=== PATIENT | male | born 1955 | race Caucasian/White ===

== ENCOUNTER 2019-10-20 18:53 | Emergency (ER) | payer MEDICAID, OTHER, SELFPAY ==
[~2019-10-20] VITALS: Ht 157.5 cm; Wt 54.5 kg
[2019-10-20] MEDS ORDERED: PLEASE ENTER ALLERGIES MC SCH (19:30)
[2019-10-20] MEDS ORDERED: DIPH,PERTUSS(ACELL),TET VAC/PF 0.5 ML IM-VACC ONE ×2 (19:30→20:05)
[2019-10-20] MEDS ORDERED: BACITRACIN OINT 500U/GM, 15 GM TP STA (19:45)
[2019-10-20] MEDS ORDERED: NEOSPORIN OINT. PKT 1 PACKET ONE ×2 (19:47→19:51)
[2019-10-20 20:53] VITALS: BP 104/60
== END 2019-10-20 21:01 | disposition home or self-care (01) ==
LOC: ED 21:00
DX: S00.83XA Contusion of other part of head, initial encounter (principal); S00.33XA Contusion of nose, initial encounter; F10.120 Alcohol abuse with intoxication, uncomplicated; F17.210 Nicotine dependence, cigarettes, uncomplicated; W01.0XXA Fall on same level from slipping, tripping and stumbling without subsequent striking against object, initial encounter; Y93.89 Activity, other specified; Y92.488 Other paved roadways as the place of occurrence of the external cause; Y99.8 Other external cause status; Y90.9 Presence of alcohol in blood, level not specified
CPT/HCPCS: 70450; 70486; 72125; 90471; 90715; 99284

== ENCOUNTER 2019-11-14 05:21 | Emergency (ER) | payer SELFPAY ==
[~2019-11-14] VITALS: Ht 160 cm; Wt 50.9 kg
[2019-11-14 05:29] VITALS: BP 119/93
== END 2019-11-14 06:07 | disposition home or self-care (01) ==
LOC: ED 06:00
DX: K40.91 Unilateral inguinal hernia, without obstruction or gangrene, recurrent (principal); F10.220 Alcohol dependence with intoxication, uncomplicated; F17.210 Nicotine dependence, cigarettes, uncomplicated; R00.0 Tachycardia, unspecified; Y90.9 Presence of alcohol in blood, level not specified
CPT/HCPCS: 99283